=== PATIENT | male | born 1980 | race Caucasian/White ===

== ENCOUNTER 2021-12-27 05:01 | Emergency (ER) | payer MEDICAID, OTHER ==
[~2021-12-27] VITALS: Ht 185.4 cm; Wt 100.4 kg
--- NOTE | 2021-12-27 05:11 | NUR ---
Dr Lou at bedside, MSE in progress.
[2021-12-27] MEDS ORDERED: ONDANSETRON 4 MG/2 ML VIAL ONE (05:23)
[2021-12-27] MEDS ORDERED: HYDROMORPHONE 1 MG/1 ML DISP.SYRIN ONE (05:24)
[2021-12-27] MEDS ORDERED: HYDROMORPHONE 1 MG/1 ML DISP.SYRIN IV ONE (05:30)
[2021-12-27] MEDS ORDERED: ONDANSETRON 4 MG/2 ML VIAL IV ONE (05:30)
[2021-12-27] MEDS ORDERED: IV NORMAL SALINE 250 ML IV ONE (05:39)
[2021-12-27] MEDS ORDERED: IOHEXOL 300MG/ML 100 ML INFUS..BTL ONE (05:39)
[2021-12-27] MEDS ORDERED: SWABABLE VALVE TRANSFER SET EA MC ONE (05:39)
[2021-12-27 05:40] LABS: HEMATOCRIT 42.8 % (36.7-47.1); MEAN CORPUSCULAR VOLUME 84.4 fL (73.0-96.2); PLATELET COUNT (AUTO) 242 K/uL (152-348)
[2021-12-27 05:53] LABS: BILIRUBIN,DIRECT 0.1 mg/dL (0.0-0.2); BILIRUBIN,TOTAL 0.7 mg/dL (0.2-1.0); CREATININE 0.9 mg/dL (0.6-1.3); POTASSIUM 3.3 mmol/L (3.5-5.1); TOTAL PROTEIN, SERUM 6.9 g/dL (6.4-8.2)
--- NOTE | 2021-12-27 06:42 | NUR ---
Patient's SO at bedside
--- NOTE | 2021-12-27 07:10 | NUR ---
U/S tech completed u/s and pt is sleeping in bed, comfortably. NAD noted at this time.
[2021-12-27] MEDS ORDERED: ONDA4TAB5 PO (07:33)
[2021-12-27] MEDS ORDERED: FAMO-132 PO (07:33)
--- NOTE | 2021-12-27 08:04 | NUR ---
Patient is resting comfortably in bed with eyes closed, NAD noted.
[2021-12-27 08:43] VITALS: BP 143/67
--- NOTE | 2021-12-27 08:43 | NUR ---
Patient discharged to home in stable condition. Written and verbal after care instructions given. Patient verbalizes understanding of instructions. Stressed follow up or return to ER for worsening s/s.
--- NOTE | 2021-12-27 08:43 | NUR ---
IV removed. Catheter intact and site benign. Pressure and 4x4 gauze applied to site. No bleeding noted.
== END 2021-12-27 08:44 | disposition home or self-care (01) ==
LOC: ER 05:08
DX: R10.10 Upper abdominal pain, unspecified (principal); F17.210 Nicotine dependence, cigarettes, uncomplicated; E87.6 Hypokalemia; K76.0 Fatty (change of) liver, not elsewhere classified
CPT/HCPCS: 36415; 74177; 76705; 80048; 80076; 83690; 85025; 85730; 96374; 96375; 99285; 99406; J1170; J2405; Q9967; A4663

== ENCOUNTER 2021-12-30 02:30 | Inpatient (IN) | payer OTHER ==
[~2021-12-30] VITALS: Ht 188 cm; Wt 108.9 kg
[~2021-12-30 02:30] MED LIST: FAMO-132 PO; ONDA4TAB5 PO
[2021-12-30] MEDS ORDERED: ONDANSETRON 4 MG/2 ML VIAL ONE (02:39)
[2021-12-30] MEDS ORDERED: HYDROMORPHONE 1 MG/1 ML DISP.SYRIN ONE ×3 (02:39→05:49)
[2021-12-30] MEDS ORDERED: SWABABLE VALVE TRANSFER SET EA MC ONE (02:44)
[2021-12-30] MEDS ORDERED: IOHEXOL 300MG/ML 100 ML INFUS..BTL ONE ×2 (02:44→02:46)
[2021-12-30] MEDS ORDERED: IV NORMAL SALINE 250 ML IV ONE (02:44)
[2021-12-30] MEDS ORDERED: HYDROMORPHONE 1 MG/1 ML DISP.SYRIN IV ONE ×3 (02:45→06:00)
[2021-12-30] MEDS ORDERED: IV NORMAL SALINE 1000 ML BAG IV ONE (02:45)
[2021-12-30] MEDS ORDERED: ONDANSETRON 4 MG/2 ML VIAL IV ONE (02:45)
[2021-12-30 02:58] LABS: HEMATOCRIT 45.2 % (36.7-47.1); MEAN CORPUSCULAR HEMOGLOBIN 29.4 uug (23.8-33.4); MEAN CORPUSCULAR VOLUME 83.7 fL (73.0-96.2); PLATELET COUNT (AUTO) 244 K/uL (152-348)
[2021-12-30 03:08] LABS: CARBON DIOXIDE 24 mmol/L (21-32); CHLORIDE 104 mmol/L (98-107); CREATININE 0.9 mg/dL (0.6-1.3); GLUCOSE 116 mg/dL (74-106); POTASSIUM 3.8 mmol/L (3.5-5.1); UREA NITROGEN, BLOOD 18 mg/dL (7-18)
[2021-12-30 03:16] LABS: ALANINE AMINOTRANSFERASE 43 U/L (16-63); ALKALINE PHOSPHATASE 72 U/L (50-136); ASPARTATE AMINOTRANSFERASE 14 U/L (15-37); BILIRUBIN,DIRECT 0.1 mg/dL (0.0-0.2); BILIRUBIN,TOTAL 0.5 mg/dL (0.2-1.0); LIPASE 114 U/L (73-393); TOTAL PROTEIN, SERUM 7.6 g/dL (6.4-8.2)
[2021-12-30 04:08] LABS: *BILIRUBIN,URIN NEGATIVE (NEGATIVE); *BLOOD, URINE NEGATIVE (NEGATIVE); *CLARITY,URINE CLEAR (CLEAR); *COLOR,URINE YELLOW (YELLOW); *KETONES,URINE NEGATIVE (NEGATIVE); *UROBILINOGEN,URINE 0.2 E.U./dl (NORMAL); LEUKOCYTE ESTERASE ,URINE NEGATIVE (NEGATIVE); NITRITE, URINE NEGATIVE (NEGATIVE); UGLUCOSE NEGATIVE (NEGATIVE)
[2021-12-30] MEDS ORDERED: REMEDY ESSENTIAL ZINC PASTE 113 GM TP PRN (13:45)
[2021-12-30] MEDS ORDERED: ACETAMINOPHEN 325 MG TABLET PO PRN (13:45)
[2021-12-30] MEDS ORDERED: ONDANSETRON 4 MG/2 ML VIAL IV PRN (13:45)
[2021-12-30] MEDS ORDERED: MORPHINE SULFATE 2 MG/1 ML DISP.SYRIN IV PRN (13:45)
[2021-12-30] MEDS ORDERED: IV NS 1000 ML 1,000 ML IV PRN (13:45)
[2021-12-30] MEDS ORDERED: NAPR-1164 PO (17:18)
== END 2021-12-30 17:10 | disposition home or self-care (01) | DRG 254 ==
LOC: ER 02:30 → MEDSURG3 10:33
PROVIDERS: ADMIT Nurse Practitioner Acute Care; ATTEND Nurse Practitioner Acute Care
DX: K42.0 Umbilical hernia with obstruction, without gangrene (principal); D72.829 Elevated white blood cell count, unspecified; F17.210 Nicotine dependence, cigarettes, uncomplicated; F41.9 Anxiety disorder, unspecified; K29.70 Gastritis, unspecified, without bleeding; Z71.6 Tobacco abuse counseling; K57.90 Diverticulosis of intestine, part unspecified, without perforation or abscess without bleeding; Z20.822 Contact with and (suspected) exposure to COVID-19
CPT/HCPCS: 36415; 71045; 83690; 84484; 85025; 85730; 93005; G0378; J1170; J2405; J7040; Q9967

== ENCOUNTER 2022-03-01 04:24 | Emergency (ER) | payer OTHER ==
[~2022-03-01] VITALS: Ht 188 cm; Wt 108.9 kg
[~2022-03-01 04:24] MED LIST changes: +NAPR-1164 PO
--- NOTE | 2022-03-01 04:34 | NUR ---
Dr. Cervantes in room for REDD.
--- NOTE | 2022-03-01 04:34 | NUR ---
pt c/o abd pain x 3 hours.
[2022-03-01] MEDS ORDERED: HYDROMORPHONE 2 MG/1 ML DISP.SYRIN ONE ×2 (04:37→04:49)
[2022-03-01] MEDS ORDERED: PROCHLORPERAZINE EDISYLATE 10 MG/2 ML VIAL ONE (04:38)
[2022-03-01] MEDS ORDERED: HYDROMORPHONE 1 MG/1 ML DISP.SYRIN IV ONE ×2 (04:45→05:00)
[2022-03-01] MEDS ORDERED: PROCHLORPERAZINE EDISYLATE 10 MG/2 ML VIAL IV ONE (04:45)
[2022-03-01] MEDS ORDERED: IV NORMAL SALINE 1000 ML BAG IV ONE (04:45)
[2022-03-01 05:41] LABS: HEMATOCRIT 43.4 % (36.7-47.1); MEAN CORPUSCULAR VOLUME 84.1 fL (73.0-96.2); PLATELET COUNT (AUTO) 255 K/uL (152-348)
[2022-03-01 05:42] LABS: POTASSIUM 3.7 mmol/L (3.5-5.1)
[2022-03-01] MEDS ORDERED: HYDR4TAB4 PO (06:17)
[2022-03-01 06:26] VITALS: BP 142/75
--- NOTE | 2022-03-01 06:26 | NUR ---
Patient discharged to home in stable condition. Written and verbal after care instructions given. Patient verbalizes understanding of instructions. Stressed follow up or return to ER for worsening s/s. Patient is a/ox4, NAD noted. Patient is able to walk with steady gait. Patient is accompanied by SO
== END 2022-03-01 06:27 | disposition home or self-care (01) ==
LOC: ER 04:27
DX: K42.0 Umbilical hernia with obstruction, without gangrene (principal); F17.210 Nicotine dependence, cigarettes, uncomplicated; R03.0 Elevated blood-pressure reading, without diagnosis of hypertension
CPT/HCPCS: 99284; 96374; 96361; 96375; 99406; 80048; 83036; 83690; 83735; 85025; 36415; J0780; J1170 ×2; J7040; A4663

== ENCOUNTER 2022-03-04 04:36 | Emergency (ER) | payer OTHER ==
[~2022-03-04] VITALS: Ht 182.9 cm; Wt 106.1 kg
[~2022-03-04 04:36] MED LIST changes: +HYDR4TAB4 PO
[2022-03-04] MEDS ORDERED: ONDANSETRON 4 MG/2 ML VIAL ONE (05:44)
[2022-03-04] MEDS ORDERED: HYDROMORPHONE 1 MG/1 ML DISP.SYRIN IV ONE ×4 (05:45→09:00)
[2022-03-04] MEDS ORDERED: ONDANSETRON 4 MG/2 ML VIAL IV ONE (05:45)
[2022-03-04] MEDS ORDERED: HYDROMORPHONE 2 MG/1 ML DISP.SYRIN ONE (05:45)
[2022-03-04] MEDS ORDERED: IV NS 1000 ML 1,000 ML IV ONE (05:45)
[2022-03-04 06:05] LABS: HEMATOCRIT 43.8 % (36.7-47.1); MEAN CORPUSCULAR HEMOGLOBIN 28.9 uug (23.8-33.4); MEAN CORPUSCULAR VOLUME 83.9 fL (73.0-96.2); PLATELET COUNT (AUTO) 273 K/uL (152-348)
[2022-03-04 06:06] LABS: POTASSIUM 3.6 mmol/L (3.5-5.1)
[2022-03-04 06:11] LABS: BILIRUBIN,DIRECT 0.3 mg/dL (0.0-0.2); BILIRUBIN,TOTAL 1.3 mg/dL (0.2-1.0); TOTAL PROTEIN, SERUM 8.6 g/dL (6.4-8.2)
[2022-03-04] MEDS ORDERED: PANTOPRAZOLE SODIUM 40 MG VIAL IV ONE (06:15)
[2022-03-04] MEDS ORDERED: PANTOPRAZOLE SODIUM 40 MG VIAL ONE (06:16)
--- NOTE | 2022-03-04 06:23 | NUR ---
DR. BRIGGS EXAMINED PATIENT AND ORDERS CARRIED OUT.
[2022-03-04] MEDS ORDERED: HYDROMORPHONE 1 MG/1 ML DISP.SYRIN ONE ×2 (06:56→08:49)
[2022-03-04] MEDS ORDERED: IOHEXOL 300MG/ML 50 ML VIAL ONE ×2 (07:01)
[2022-03-04] MEDS ORDERED: IV NORMAL SALINE 250 ML IV ONE (07:01)
[2022-03-04] MEDS ORDERED: SWABABLE VALVE TRANSFER SET EA MC ONE (07:01)
--- NOTE | 2022-03-04 07:01 | NUR ---
DR. SOLIMAN ORDERED PAIN MEDICATION. PATIENT COMPLAINED OF PAIN AND DISCOMFORT.
[2022-03-04] MEDS ORDERED: LIDOCAINE VISCUS 2% 15 ML UDC MM ONE (07:15)
[2022-03-04] MEDS ORDERED: MAG HYDROX/AL HYDROX/SIMETH 30 ML LIQUID UDC PO ONE (07:15)
--- NOTE | 2022-03-04 07:32 | NUR ---
report given to Karan MORGAN-registry.
[2022-03-04] MEDS ORDERED: MAG HYDROX/AL HYDROX/SIMETH 30 ML LIQUID UDC ONE (08:28)
[2022-03-04] MEDS ORDERED: LIDOCAINE VISCUS 2% 15 ML UDC ONE (08:28)
--- NOTE | 2022-03-04 08:45 | NUR ---
recieved report from Jun MORGAN. GI cocktail given per MD orders. pain persists, MD at bedside.
--- NOTE | 2022-03-04 09:00 | NUR ---
.5mg dilaudid IV given to patient, after 5 minutes reported some relief from abd pain. VS WNL. will continue to monitor.
--- NOTE | 2022-03-04 09:40 | NUR ---
Francis dejesus in ED - 03/04/22 at 1027 by [email or web address] Pt self-BG test was 264. Pt set his pump for 53 "units of carbs."
[2022-03-04] MEDS ORDERED: OMEP1CAP24 PO (09:54)
[2022-03-04] MEDS ORDERED: FAMO-132 PO (09:55)
[2022-03-04] MEDS ORDERED: HYDROCODONE/APAP 5-325MG TABLET ONE (10:15)
[2022-03-04] MEDS ORDERED: HYDROCODONE/APAP 5-325MG TABLET PO ONE (10:15)
--- NOTE | 2022-03-04 10:20 | NUR ---
iv removed, site secured with pressure dressing and tape. Patient discharged to home in stable condition. Written and verbal after care instructions given. Patient verbalizes understanding of instructions. Stressed follow up or return to ER for worsening s/s.
[2022-03-04 10:33] LABS: *BILIRUBIN,URIN NEGATIVE (NEGATIVE); *CLARITY,URINE CLEAR (CLEAR); *COLOR,URINE YELLOW (YELLOW); *KETONES,URINE 1+ (NEGATIVE); LEUKOCYTE ESTERASE ,URINE NEGATIVE (NEGATIVE); NITRITE, URINE NEGATIVE (NEGATIVE); UGLUCOSE NEGATIVE (NEGATIVE)
[2022-03-04 11:07] LABS: *BLOOD, URINE TRACE (NEGATIVE)
[2022-03-04 11:24] LABS: MUCUS,URINE FEW /LPF (0-FEW)
[2022-03-04 11:25] LABS: BACTERIA,URINE NONE SEEN /HPF (NONE SEEN); RBC,URINE 0-3 /HPF (0-3); SQUAMOUS EPITHELIAL CELL,UR NONE SEEN /HPF (NONE SEEN); WBC,URINE NONE SEEN /HPF (0-3)
[2022-03-04] MEDS ORDERED: HYDR-4209 PO (13:19)
== END 2022-03-04 10:22 | disposition home or self-care (01) ==
LOC: ER 04:47
DX: R10.33 Periumbilical pain (principal); F17.210 Nicotine dependence, cigarettes, uncomplicated; Z87.19 Personal history of other diseases of the digestive system; K42.9 Umbilical hernia without obstruction or gangrene
CPT/HCPCS: 99285; 74177; 96374; 96375; 80076; 80048; 81001; 83690; 85025; 84484; 36415; 93005; 96376; 83605; Q9967 ×2; J2405; C9113; J1170 ×3